=== PATIENT | male | born 1945 | race Caucasian/White ===

== ENCOUNTER 2017-09-21 17:39 | Inpatient (IN) ==
[2017-09-21] MEDS ORDERED: methylPREDNISolone SOD SUC 125 MG/2 ML VIAL IV STA (18:14)
[2017-09-21] MEDS ORDERED: FUROSEMIDE 100 MG/10 ML VIAL IV STA (18:14)
[2017-09-21] MEDS ORDERED: cefTRIAXone 1,000 MG in SODIUM CHLORIDE 0.9% 100 ML IV STA (18:14)
[2017-09-21] MEDS ORDERED: ASPIRIN 325 MG TABLET PO STA (18:14)
[2017-09-21] MEDS ORDERED: MORPHINE 2 MG/1 ML SYRINGE IV STA (18:14)
[2017-09-21] MEDS ORDERED: ENOXAPARIN 100 MG/ML SYRINGE SUBCUT STA (18:14)
[2017-09-21] MEDS ORDERED: ONDANSETRON 4 MG/2 ML VIAL IV STA (18:14)
[2017-09-21] MEDS ORDERED: NITROGLYCERIN 2% OINT 1 INCH/GM PACK TOP STA (18:14)
[2017-09-21] MEDS ORDERED: ALBUTEROL/IPRATROPIUM 3 ML NEB RESP TX STA (18:14)
[2017-09-21] MEDS ORDERED: ONDANSETRON 4 MG/2 ML VIAL ONE (18:28)
[2017-09-21] MEDS ORDERED: cefTRIAXone 1,000 MG VIAL ONE (18:28)
[2017-09-21] MEDS ORDERED: FUROSEMIDE 40 MG/4 ML VIAL ONE (18:28)
[2017-09-21] MEDS ORDERED: MORPHINE 2 MG/1 ML SYRINGE ONE (18:28)
[2017-09-21] MEDS ORDERED: ENOXAPARIN 120 MG/0.8 ML SYRINGE SUBCUT ONE (18:28)
[2017-09-21] MEDS ORDERED: FUROSEMIDE 20 MG/2 ML VIAL ONE (18:28)
[2017-09-21] MEDS ORDERED: ASPIRIN 325 MG TABLET ONE (18:28)
[2017-09-21] MEDS ORDERED: NITROGLYCERIN 2% OINT 1 INCH/GM PACK TOP ONE (18:28)
[2017-09-21] MEDS ORDERED: methylPREDNISolone SOD SUC 125 MG/2 ML VIAL ONE (18:29)
[2017-09-21 18:31] LABS: Basophils % 0.3 % (0.0-0.8); Eosinophils % 0.2 % (0.00-10.9); Hematocrit 34.9 VOL% (42.0-52.0); Hemoglobin 12.3 GM/DL (14.0-18.0); Immature Granulocytes % 0.2 %; Immature Granulocytes Absolute 0.01 #; Lymphocytes # 0.5 10*3/uL (1.4-4.0); Lymphocytes % 7.6 % (21.2-54.2); Mean Corpuscular HGB Conc 35.2 GM/DL (32-36); Mean Corpuscular Hemoglobin 30 PG (27-34); Mean Platelet Volume 9.5 FL (9.6-12.0); Monocytes # 0.5 10*3/uL (0.11-0.8); Monocytes % 8.9 % (1.7-12.7); Neutrophils # 4.9 10*3/uL (1.4-7.4); Neutrophils % 82.8 % (38.7-73.9); Platelet Count 212 T/CUMM (130-400); Red Blood Count 4.06 MC/CUMM (3.8-5.5); Red Cell Distribution Width 14.3 % (9.3-17.3)
[2017-09-21 18:39] LABS: PT Patient Result 10.7 SECS
[2017-09-21 18:46] LABS: ABG Base Excess 2.6 MMOL/L (-2.5-2.5); ABG HCO3 26.7 MMOL/L (20-26); ABG Oxygen Saturation 96.5 % (95-100); ABG PCO2 35.4 MM HG (35-48); ABG PH 7.474 (7.35-7.45); ABG PO2 80.3 MM HG (80-95); ABG TCO2 22.9 MMOL/L (23-27)
[2017-09-21 19:02] LABS: Alanine Aminotransferase 53 U/L (16-61); Alkaline Phosphatase 78 U/L (45-117); Aspartate Amino Transferase 53 U/L (0-37); Blood Urea Nitrogen 24 MG/DL (7-18); Calcium 8.3 MG/DL (8.5-10.1); Glucose 139 MG/DL (74-106); Osmolality,Calculated 267.7 MOS/KG (273-304); Potassium 3.5 MMOL/L (3.5-5.1); Sodium 131 MMOL/L (136-145); Total Protein 7.9 G/DL (6.4-8.3); Troponin I Only 0.024 NG/ML (0.00-0.045)
[2017-09-21 19:38] LABS: Lactic Acid 3.1 MMOL/L (0.4-2.0)
[2017-09-21] MEDS ORDERED: OSELTAMIVIR 75 MG CAPSULE PO ONE (19:50)
[2017-09-21 20:13] LABS: PT Patient Result 10.6 SECS; Partial Thromboplastin Time 27.7 SECS (0-40)
[2017-09-21 20:20] LABS: Apearance,Urine CLEAR (Clear); Bilirubin,Urine Negative (Negative); Blood, Urine Small mg/dL (Negative); Glucose,Urine (UA) Negative (Negative); Ketones,Urine Negative (Negative); Nitrite,Urine Negative (Negative); Protein,Urine Negative; RBC,Urine 1 /HPF (0-4); Squamous Epithelial Cell,Urine Occasional /HPF (0-10); Urine Color Straw (Yellow); Urine Specific Gravity 1.006 (1.001-1.035); Urine Urobilinogen < 2.0 EU/DL (0.2-1.0); WBC,Urine <1 /HPF (0-6)
[2017-09-21] MEDS ORDERED: DEXTROSE 50% 25 GM/50 ML VIAL IV PRN (20:22)
[2017-09-21] MEDS ORDERED: ONDANSETRON 4 MG/2 ML VIAL IV PRN (20:22)
[2017-09-21] MEDS ORDERED: ACETAMINOPHEN 325 MG TABLET PO PRN (20:22)
[2017-09-21] MEDS ORDERED: ZALEPLON 5 MG CAPSULE PO PRN (20:22)
[2017-09-21] MEDS ORDERED: GLUCAGON 1 MG VIAL IM PRN (20:22)
[2017-09-21] MEDS ORDERED: clonazePAM 0.5 MG TABLET PO PRN (20:26)
[2017-09-21] MEDS ORDERED: NITROGLYCERIN SL 0.4 MG TABLET SL PRN (20:26)
[2017-09-21] MEDS ORDERED: SODIUM CHLORIDE 0.9% 500 ML IV ONE (20:28)
[2017-09-21] MEDS: PIPERACILLIN/TAZOBACTAM 3,375 MG in SODIUM CHLORIDE 0.9% 100 ML IV SCH (22:05)
[2017-09-21] MEDS: SODIUM CHLORIDE 0.9% 1,000 ML IV SCH (23:48)
[2017-09-21] MEDS: ROSUVASTATIN 10 MG TABLET PO SCH (23:50)
[2017-09-21] MEDS: TAMSULOSIN 0.4 MG CAPSULE PO SCH (23:50)
[2017-09-21] MEDS: MAGNESIUM OXIDE 400 MG TABLET PO SCH (23:50)
[2017-09-21] MEDS: methylPREDNISolone SOD SUC 125 MG/2 ML VIAL IV SCH (23:51)
[2017-09-21] MEDS: DICLOFENAC 1% GEL 100 GM TUBE TOP SCH (23:51)
[2017-09-21] MEDS: INSULIN LISPRO 100 UNIT/ML SUBCUT SCH (23:51)
[2017-09-22] MEDS: AZITHROMYCIN INJ 500 MG in SODIUM CHLORIDE 0.9% 250 ML IV SCH ×2 (00:55→22:51)
[2017-09-22 00:58] LABS: CKMB % 0.2 %; Troponin I Only 0.025 NG/ML (0.00-0.045)
[2017-09-22] MEDS: ALBUTEROL 1.25 MG/3 ML NEB RESP TX SCH ×4 (02:31→21:10)
[2017-09-22] MEDS: methylPREDNISolone SOD SUC 125 MG/2 ML VIAL IV SCH ×2 (04:44→14:01)
[2017-09-22] MEDS: PIPERACILLIN/TAZOBACTAM 3,375 MG in SODIUM CHLORIDE 0.9% 100 ML IV SCH ×3 (06:19→23:55)
[2017-09-22 07:22] LABS: Basophils % 0.2 % (0.0-0.8); Hematocrit 31.9 VOL% (42.0-52.0); Hemoglobin 11.1 GM/DL (14.0-18.0); Immature Granulocytes % 1.4 %; Immature Granulocytes Absolute 0.06 #; Lymphocytes # 0.6 10*3/uL (1.4-4.0); Lymphocytes % 13.8 % (21.2-54.2); Mean Corpuscular HGB Conc 34.8 GM/DL (32-36); Mean Corpuscular Hemoglobin 30 PG (27-34); Mean Corpuscular Volume 85.8 FL (87-102); Mean Platelet Volume 10.1 FL (9.6-12.0); Monocytes # 0.1 10*3/uL (0.11-0.8); Monocytes % 3.4 % (1.7-12.7); Neutrophils # 3.4 10*3/uL (1.4-7.4); Neutrophils % 81.2 % (38.7-73.9); Platelet Count 190 T/CUMM (130-400); Red Blood Count 3.72 MC/CUMM (3.8-5.5); Red Cell Distribution Width 14.3 % (9.3-17.3); White Blood Count 4.1 T/CUMM (4-12)
[2017-09-22 07:49] LABS: Lactic Acid 2.2 MMOL/L (0.4-2.0)
[2017-09-22 07:55] LABS: Alanine Aminotransferase 49 U/L (16-61); Albumin 3.4 G/DL (3.4-5.0); Alkaline Phosphatase 68 U/L (45-117); Aspartate Amino Transferase 50 U/L (0-37); Blood Urea Nitrogen 29 MG/DL (7-18); Calcium 7.9 MG/DL (8.5-10.1); Glucose 269 MG/DL (74-106); Osmolality,Calculated 284.1 MOS/KG (273-304); Potassium 3.7 MMOL/L (3.5-5.1); Sodium 135 MMOL/L (136-145); Total Protein 6.5 G/DL (6.4-8.3)
[2017-09-22 08:06] LABS: CKMB % 0.3 %; Troponin I Only 0.019 NG/ML (0.00-0.045)
[2017-09-22] MEDS: DICLOFENAC 1% GEL 100 GM TUBE TOP SCH ×4 (08:59→23:04)
[2017-09-22] MEDS: INSULIN LISPRO 100 UNIT/ML SUBCUT SCH ×4 (08:59→21:00)
[2017-09-22] MEDS: ASPIRIN EC 325 MG TABLET PO SCH (09:00)
[2017-09-22] MEDS ORDERED: VALSARTAN 160 MG TABLET PO SCH (09:00)
[2017-09-22] MEDS: MULTIVITAMIN (CENTRUM) TABLET PO SCH (09:00)
[2017-09-22] MEDS: PANTOPRAZOLE 40 MG TABLET PO SCH (09:01)
[2017-09-22] MEDS: DULoxetine 30 MG CAPSULE PO SCH (09:01)
[2017-09-22] MEDS: OSELTAMIVIR 75 MG CAPSULE PO SCH ×2 (09:01→21:02)
[2017-09-22] MEDS: CLOPIDOGREL 75 MG TABLET PO SCH (09:01)
[2017-09-22 11:56] LABS: Lactic Acid 2.6 MMOL/L (0.4-2.0)
[2017-09-22] MEDS: SODIUM CHLORIDE 0.9% 1,000 ML IV SCH ×2 (14:00→18:20)
[2017-09-22] MEDS ORDERED: guaiFENesin/DM ER 600-30 MG TABLET PO PRN (14:59)
[2017-09-22] MEDS: BUMETANIDE 1 MG TABLET PO SCH (17:32)
[2017-09-22] MEDS: ENOXAPARIN 40 MG/0.4 ML SYRINGE SUBCUT SCH (21:00)
[2017-09-22] MEDS: cefTRIAXone 1,000 MG in SYRINGE 1 EACH IV SCH (21:00)
[2017-09-22] MEDS: CALCIUM (CITRATE)/VITAMIN D 200 MG-125 UNIT TABLET PO SCH (21:01)
[2017-09-22] MEDS: POTASSIUM CHLORIDE 20 MEQ TABLET PO SCH (21:01)
[2017-09-22] MEDS: ROSUVASTATIN 10 MG TABLET PO SCH (21:01)
[2017-09-22] MEDS: TAMSULOSIN 0.4 MG CAPSULE PO SCH (21:01)
[2017-09-22] MEDS: MAGNESIUM OXIDE 400 MG TABLET PO SCH (21:02)
[2017-09-23] MEDS: ALBUTEROL 1.25 MG/3 ML NEB RESP TX SCH ×4 (01:40→21:53)
[2017-09-23] MEDS: methylPREDNISolone SOD SUC 40 MG/1 ML VIAL IV SCH ×2 (02:38→14:14)
[2017-09-23] MEDS: SODIUM CHLORIDE 0.9% 1,000 ML IV SCH ×4 (06:16→21:20)
[2017-09-23] MEDS: PIPERACILLIN/TAZOBACTAM 3,375 MG in SODIUM CHLORIDE 0.9% 100 ML IV SCH ×2 (06:16→14:15)
[2017-09-23] MEDS: POTASSIUM CHLORIDE 20 MEQ TABLET PO SCH ×2 (09:14→20:45)
[2017-09-23] MEDS: INSULIN LISPRO 100 UNIT/ML SUBCUT SCH ×4 (09:14→20:46)
[2017-09-23] MEDS: DULoxetine 30 MG CAPSULE PO SCH (09:14)
[2017-09-23] MEDS: CALCIUM (CITRATE)/VITAMIN D 200 MG-125 UNIT TABLET PO SCH ×2 (09:15→20:45)
[2017-09-23] MEDS: PANTOPRAZOLE 40 MG TABLET PO SCH (09:15)
[2017-09-23] MEDS: MULTIVITAMIN (CENTRUM) TABLET PO SCH (09:15)
[2017-09-23] MEDS: CLOPIDOGREL 75 MG TABLET PO SCH (09:15)
[2017-09-23] MEDS: OSELTAMIVIR 75 MG CAPSULE PO SCH ×2 (09:15→20:45)
[2017-09-23] MEDS: ASPIRIN EC 325 MG TABLET PO SCH (09:15)
[2017-09-23] MEDS: BUMETANIDE 1 MG TABLET PO SCH ×2 (09:15→16:31)
[2017-09-23] MEDS: DICLOFENAC 1% GEL 100 GM TUBE TOP SCH ×4 (09:16→20:47)
[2017-09-23] MEDS: MAGNESIUM OXIDE 400 MG TABLET PO SCH (20:45)
[2017-09-23] MEDS: TAMSULOSIN 0.4 MG CAPSULE PO SCH (20:45)
[2017-09-23] MEDS: ROSUVASTATIN 10 MG TABLET PO SCH (20:45)
[2017-09-23] MEDS: ENOXAPARIN 40 MG/0.4 ML SYRINGE SUBCUT SCH (20:46)
[2017-09-23] MEDS: cefTRIAXone 1,000 MG in SYRINGE 1 EACH IV SCH (20:50)
[2017-09-24] MEDS: AZITHROMYCIN INJ 500 MG in SODIUM CHLORIDE 0.9% 250 ML IV SCH (00:31)
[2017-09-24] MEDS: methylPREDNISolone SOD SUC 40 MG/1 ML VIAL IV SCH ×2 (02:49→14:06)
[2017-09-24] MEDS: ALBUTEROL 1.25 MG/3 ML NEB RESP TX SCH ×3 (02:51→14:05)
[2017-09-24] MEDS: PIPERACILLIN/TAZOBACTAM 3,375 MG in SODIUM CHLORIDE 0.9% 100 ML IV SCH ×2 (02:55→09:23)
[2017-09-24 04:11] LABS: Calcium 7.3 MG/DL (8.5-10.1); Magnesium 2.4 MG/DL (1.8-2.4); Osmolality,Calculated 283.7 MOS/KG (273-304); Potassium 3.4 MMOL/L (3.5-5.1)
[2017-09-24] MEDS: SODIUM CHLORIDE 0.9% 1,000 ML IV SCH ×2 (05:03→12:02)
[2017-09-24] MEDS: DULoxetine 30 MG CAPSULE PO SCH (08:12)
[2017-09-24] MEDS: PANTOPRAZOLE 40 MG TABLET PO SCH (08:13)
[2017-09-24] MEDS: ASPIRIN EC 325 MG TABLET PO SCH (08:13)
[2017-09-24] MEDS: CLOPIDOGREL 75 MG TABLET PO SCH (08:13)
[2017-09-24] MEDS: MULTIVITAMIN (CENTRUM) TABLET PO SCH (08:13)
[2017-09-24] MEDS: CALCIUM (CITRATE)/VITAMIN D 200 MG-125 UNIT TABLET PO SCH (08:13)
[2017-09-24] MEDS: BUMETANIDE 1 MG TABLET PO SCH (08:13)
[2017-09-24] MEDS: OSELTAMIVIR 75 MG CAPSULE PO SCH (08:13)
[2017-09-24] MEDS: INSULIN LISPRO 100 UNIT/ML SUBCUT SCH ×2 (08:13→12:22)
[2017-09-24] MEDS: POTASSIUM CHLORIDE 20 MEQ TABLET PO SCH (08:13)
[2017-09-24] MEDS: DICLOFENAC 1% GEL 100 GM TUBE TOP SCH ×2 (08:16→12:02)
[2017-09-24 12:08] VITALS: BP 148/87
== END 2017-09-24 14:13 | disposition home or self-care (01) | DRG 193 ==
LOC: N.ED 17:39 → SUATTDRO 20:22 → N.EDINP 20:22 → N.3E 22:09
PROVIDERS: ADMIT Internal Medicine; ATTEND Internal Medicine Infectious Disease

== ENCOUNTER 2019-06-02 05:40 | Inpatient (IN) ==
[2019-06-02] MEDS ORDERED: NITROGLYCERIN 2% OINT 1 INCH/GM PACK TOP STA (06:03)
[2019-06-02] MEDS ORDERED: ASPIRIN 325 MG TABLET PO STA (06:03)
[2019-06-02] MEDS ORDERED: ONDANSETRON 4 MG/2 ML VIAL IV STA (06:03)
[2019-06-02 06:31] LABS: Basophils % 0.5 % (0.0-0.8); Eosinophils # 0.2 10*3/uL (0.0-0.87); Eosinophils % 2.4 % (0.00-10.9); Hematocrit 42.2 VOL% (42.0-52.0); Hemoglobin 14.5 GM/DL (14.0-18.0); Immature Granulocytes % 0.4 %; Immature Granulocytes Absolute 0.03 #; Lymphocytes # 1.4 10*3/uL (1.4-4.0); Lymphocytes % 17.5 % (21.2-54.2); Mean Corpuscular HGB Conc 34.4 GM/DL (32-36); Mean Corpuscular Volume 87.4 FL (87-102); Mean Platelet Volume 9.4 FL (9.6-12.0); Monocytes % 5.5 % (1.7-12.7); Neutrophils % 73.7 % (38.7-73.9); Platelet Count 279 T/CUMM (130-400); Red Blood Count 4.83 MC/CUMM (3.8-5.5); Red Cell Distribution Width 13.3 % (9.3-17.3); White Blood Count 7.9 T/CUMM (4-12)
[2019-06-02 06:39] LABS: PT Patient Result 10.7 SECS (9.6-12.2); Partial Thromboplastin Time 24.1 SECS (20.8-36.0)
[2019-06-02 06:45] LABS: Apearance,Urine CLEAR (Clear); Bilirubin,Urine Negative (Negative); Blood, Urine Negative (Negative); Glucose,Urine (UA) Negative (Negative); Hyaline Casts,Urine 17 /LPF (0-3); Ketones,Urine Negative (Negative); Mucus,Urine Occasional /LPF (Occasional); Nitrite,Urine Negative (Negative); Protein,Urine 30 MG/DL; RBC,Urine 2 /HPF (0-4); Urine Color Yellow (Yellow); Urine Specific Gravity 1.013 (1.001-1.035); Urine Urobilinogen < 2.0 EU/DL (0.2-1.0); WBC,Urine <1 /HPF (0-6)
[2019-06-02 06:55] LABS: CKMB % 1.3 %; Troponin I < 0.015 NG/ML (0.00-0.045)
[2019-06-02 06:59] LABS: Albumin 4.4 G/DL (3.4-5.0); Bilirubin,Total 0.7 MG/DL (0.2-1.0); Calcium 9.7 MG/DL (8.5-10.1); Osmolality,Calculated 280.2 MOS/KG (273-304)
[2019-06-02] MEDS ORDERED: POTASSIUM BICARB EFFERVESCENT 25 MEQ TABLET PO ONE (07:03)
[2019-06-02] MEDS ORDERED: GLUCAGON 1 MG VIAL IM PRN (07:19)
[2019-06-02] MEDS ORDERED: ONDANSETRON 4 MG/2 ML VIAL IV PRN (07:19)
[2019-06-02] MEDS ORDERED: DEXTROSE 10% 25 GM/250 ML BAG IV PRN (07:19)
[2019-06-02 09:40] LABS: CKMB % 1.3 %; Troponin I < 0.015 NG/ML (0.00-0.045)
[2019-06-02] MEDS ORDERED: HYDROcodone/CHLORPHENIRAMINE ER 5 ML UDCUP PO PRN (09:51)
[2019-06-02] MEDS: NITROGLYCERIN 2% OINT 1 INCH/GM PACK TOP SCH ×2 (09:53→22:31)
[2019-06-02] MEDS: metFORMIN 500 MG TABLET PO SCH ×2 (09:53→17:08)
[2019-06-02] MEDS: INSULIN REGULAR 100 UNIT/ML SUBCUT SCH ×4 (09:53→20:33)
[2019-06-02] MEDS: CLOPIDOGREL 75 MG TABLET PO SCH (12:48)
[2019-06-02] MEDS: POTASSIUM CHLORIDE 20 MEQ TABLET PO SCH ×2 (12:48→20:30)
[2019-06-02] MEDS: ASPIRIN 325 MG TABLET PO SCH (12:48)
[2019-06-02] MEDS: CALCIUM (CITRATE)/VITAMIN D 200 MG-125 UNIT TABLET PO SCH ×2 (12:48→20:31)
[2019-06-02] MEDS: LOSARTAN 25 MG TABLET PO SCH (12:48)
[2019-06-02] MEDS: PANTOPRAZOLE 40 MG TABLET PO SCH (12:50)
[2019-06-02] MEDS ORDERED: ALBUTEROL 2.5 MG/3 ML NEB RESP TX PRN (13:00)
[2019-06-02 14:27] LABS: CKMB % 1.2 %; Troponin I < 0.015 NG/ML (0.00-0.045)
[2019-06-02] MEDS: BUMETANIDE 1 MG TABLET PO SCH (17:08)
[2019-06-02] MEDS: ASCORBIC ACID 500 MG TABLET PO SCH (20:30)
[2019-06-02] MEDS: MAGNESIUM OXIDE 400 MG TABLET PO SCH (20:31)
[2019-06-02] MEDS: TAMSULOSIN 0.4 MG CAPSULE PO SCH (20:31)
[2019-06-02] MEDS: OMEGA 3 ACID ETHYL ESTERS 1 GM CAPSULE PO SCH (20:31)
[2019-06-02] MEDS: ROSUVASTATIN 10 MG TABLET PO SCH (20:31)
[2019-06-02] MEDS: SPIRONOLACTONE 25 MG TABLET PO SCH (20:31)
[2019-06-02] MEDS: MULTIVITAMIN (CENTRUM) TABLET PO SCH (20:31)
[2019-06-02] MEDS: DULoxetine 30 MG CAPSULE PO SCH (20:34)
[2019-06-02] MEDS: CHOLECALCIFEROL 5,000 UNIT TABLET PO SCH (20:43)
[2019-06-02] MEDS ORDERED: SPIRONOLACTONE 25 MG TABLET PO SCH (21:00)
[2019-06-03 05:45] LABS: CKMB % 1.1 %; Troponin I < 0.015 NG/ML (0.00-0.045)
[2019-06-03] MEDS: NITROGLYCERIN SL 0.4 MG TABLET SL PRN ×2 (08:14→08:19)
[2019-06-03] MEDS: ASPIRIN 325 MG TABLET PO SCH (08:55)
[2019-06-03] MEDS: CLOPIDOGREL 75 MG TABLET PO SCH (08:56)
[2019-06-03] MEDS: BUMETANIDE 1 MG TABLET PO SCH ×2 (08:56→16:45)
[2019-06-03] MEDS: metFORMIN 500 MG TABLET PO SCH ×2 (08:56→16:44)
[2019-06-03] MEDS: LOSARTAN 25 MG TABLET PO SCH (08:56)
[2019-06-03] MEDS: ASCORBIC ACID 500 MG TABLET PO SCH ×2 (08:56→20:35)
[2019-06-03] MEDS: CALCIUM (CITRATE)/VITAMIN D 200 MG-125 UNIT TABLET PO SCH ×2 (08:56→20:34)
[2019-06-03] MEDS: PANTOPRAZOLE 40 MG TABLET PO SCH (08:58)
[2019-06-03] MEDS: POTASSIUM CHLORIDE 20 MEQ TABLET PO SCH ×2 (08:58→20:36)
[2019-06-03] MEDS: NITROGLYCERIN 2% OINT 1 INCH/GM PACK TOP SCH ×2 (08:59→20:36)
[2019-06-03] MEDS: INSULIN REGULAR 100 UNIT/ML SUBCUT SCH ×3 (09:00→16:44)
[2019-06-03] MEDS: FLUTICASONE 50 MCG NASAL SPRAY 16 GM BOTTLE BOTH NARES SCH (11:54)
[2019-06-03] MEDS: AZELASTINE NASAL 137 MCG/SPRAY 30 ML BOTTLE BOTH NARES SCH ×2 (11:54→20:37)
[2019-06-03] MEDS ORDERED: POTASSIUM CHLORIDE RIDER 10 MEQ in PREMIX 1 EACH IV PRN (12:58)
[2019-06-03] MEDS ORDERED: diphenhydrAMINE CAP 25 MG CAPSULE PO ONE (12:58)
[2019-06-03] MEDS ORDERED: MAGNESIUM SULF RIDER 2 GM in PREMIX 1 EACH IV PRN (12:58)
[2019-06-03 13:07] LABS: Calcium 9.4 MG/DL (8.5-10.1); Osmolality,Calculated 281.2 MOS/KG (273-304)
[2019-06-03] MEDS ORDERED: diphenhydrAMINE CAP 50 MG CAPSULE PO ONE (13:19)
[2019-06-03] MEDS: ROSUVASTATIN 10 MG TABLET PO SCH (20:34)
[2019-06-03] MEDS: SPIRONOLACTONE 25 MG TABLET PO SCH (20:34)
[2019-06-03] MEDS: CHOLECALCIFEROL 5,000 UNIT TABLET PO SCH (20:35)
[2019-06-03] MEDS: TAMSULOSIN 0.4 MG CAPSULE PO SCH (20:35)
[2019-06-03] MEDS: OMEGA 3 ACID ETHYL ESTERS 1 GM CAPSULE PO SCH (20:35)
[2019-06-03] MEDS: DULoxetine 30 MG CAPSULE PO SCH (20:36)
[2019-06-03] MEDS: MAGNESIUM OXIDE 400 MG TABLET PO SCH (20:36)
[2019-06-03] MEDS: INSULIN GLARGINE 100 UNIT/ML SUBCUT SCH (20:36)
[2019-06-03] MEDS: MULTIVITAMIN (CENTRUM) TABLET PO SCH (20:36)
[2019-06-04 04:55] LABS: Basophils % 0.5 % (0.0-0.8); Eosinophils # 0.3 10*3/uL (0.0-0.87); Eosinophils % 5.3 % (0.00-10.9); Hematocrit 36.1 VOL% (42.0-52.0); Hemoglobin 12.5 GM/DL (14.0-18.0); Immature Granulocytes % 0.2 %; Immature Granulocytes Absolute 0.01 #; Lymphocytes # 1.8 10*3/uL (1.4-4.0); Lymphocytes % 29.3 % (21.2-54.2); Mean Corpuscular HGB Conc 34.6 GM/DL (32-36); Mean Corpuscular Volume 87.2 FL (87-102); Mean Platelet Volume 9.6 FL (9.6-12.0); Monocytes % 6.1 % (1.7-12.7); Neutrophils % 58.6 % (38.7-73.9); Platelet Count 229 T/CUMM (130-400); Red Blood Count 4.14 MC/CUMM (3.8-5.5); Red Cell Distribution Width 13.1 % (9.3-17.3); White Blood Count 6.2 T/CUMM (4-12)
[2019-06-04 05:36] LABS: Calcium 8.8 MG/DL (8.5-10.1)
[2019-06-04] MEDS ORDERED: diphenhydrAMINE CAP 25 MG CAPSULE PO ONE (06:30)
[2019-06-04] MEDS ORDERED: DIAZEPAM 5 MG TABLET PO ONE (06:30)
[2019-06-04] MEDS ORDERED: NITROGLYCERIN DRIP 50 MG/250 ML BOTTLE IV ONE (09:44)
[2019-06-04] MEDS ORDERED: VERAPAMIL 5 MG/2 ML VIAL ONE (09:44)
[2019-06-04] MEDS ORDERED: LIDOCAINE 1% 20 ML VIAL ONE (09:44)
[2019-06-04] MEDS: ASPIRIN 325 MG TABLET PO SCH (09:52)
[2019-06-04] MEDS: PANTOPRAZOLE 40 MG TABLET PO SCH (09:52)
[2019-06-04] MEDS: LOSARTAN 25 MG TABLET PO SCH (09:52)
[2019-06-04] MEDS: CLOPIDOGREL 75 MG TABLET PO SCH (09:53)
[2019-06-04] MEDS: FLUTICASONE 50 MCG NASAL SPRAY 16 GM BOTTLE BOTH NARES SCH (09:53)
[2019-06-04] MEDS: NITROGLYCERIN 2% OINT 1 INCH/GM PACK TOP SCH ×2 (09:53→21:15)
[2019-06-04] MEDS: POTASSIUM CHLORIDE 20 MEQ TABLET PO SCH ×2 (09:53→20:52)
[2019-06-04] MEDS: CALCIUM (CITRATE)/VITAMIN D 200 MG-125 UNIT TABLET PO SCH ×2 (09:55→21:00)
[2019-06-04] MEDS: metFORMIN 500 MG TABLET PO SCH ×2 (09:55→16:58)
[2019-06-04] MEDS: AZELASTINE NASAL 137 MCG/SPRAY 30 ML BOTTLE BOTH NARES SCH ×2 (09:55→21:03)
[2019-06-04] MEDS: INSULIN REGULAR 100 UNIT/ML SUBCUT SCH ×3 (09:56→16:58)
[2019-06-04] MEDS: BUMETANIDE 1 MG TABLET PO SCH ×2 (09:56→16:58)
[2019-06-04] MEDS: ASCORBIC ACID 500 MG TABLET PO SCH ×2 (09:56→20:50)
[2019-06-04] MEDS ORDERED: HYDROmorphone 2 MG/1 ML VIAL ONE (10:06)
[2019-06-04] MEDS ORDERED: MIDAZOLAM 2 MG/2 ML VIAL ONE (10:06)
[2019-06-04] MEDS ORDERED: BIVALIRUDIN 250 MG VIAL IV ONE (10:56)
[2019-06-04] MEDS ORDERED: HEPARIN/NACL 0.9% 2 UNITS/ML 500 ML IV ONE (10:59)
[2019-06-04] MEDS ORDERED: CLOPIDOGREL 300 MG TABLET ONE (11:11)
[2019-06-04] MEDS ORDERED: POTASSIUM CHLORIDE 20 MEQ TABLET PO ONE (17:09)
[2019-06-04] MEDS: OMEGA 3 ACID ETHYL ESTERS 1 GM CAPSULE PO SCH (20:55)
[2019-06-04] MEDS: TAMSULOSIN 0.4 MG CAPSULE PO SCH (20:55)
[2019-06-04] MEDS: MULTIVITAMIN (CENTRUM) TABLET PO SCH (20:56)
[2019-06-04] MEDS: ROSUVASTATIN 10 MG TABLET PO SCH (20:57)
[2019-06-04] MEDS: SPIRONOLACTONE 25 MG TABLET PO SCH (20:57)
[2019-06-04] MEDS: MAGNESIUM OXIDE 400 MG TABLET PO SCH (20:57)
[2019-06-04] MEDS: CHOLECALCIFEROL 5,000 UNIT TABLET PO SCH (20:57)
[2019-06-04] MEDS: DULoxetine 30 MG CAPSULE PO SCH (20:57)
[2019-06-04] MEDS: INSULIN GLARGINE 100 UNIT/ML SUBCUT SCH (21:02)
[2019-06-05 04:29] LABS: Basophils % 0.6 % (0.0-0.8); Eosinophils # 0.3 10*3/uL (0.0-0.87); Eosinophils % 4.5 % (0.00-10.9); Hematocrit 34.1 VOL% (42.0-52.0); Hemoglobin 11.7 GM/DL (14.0-18.0); Immature Granulocytes % 0.3 %; Immature Granulocytes Absolute 0.02 #; Lymphocytes # 1.6 10*3/uL (1.4-4.0); Mean Corpuscular HGB Conc 34.3 GM/DL (32-36); Mean Corpuscular Volume 88.3 FL (87-102); Mean Platelet Volume 9.7 FL (9.6-12.0); Monocytes % 5.9 % (1.7-12.7); Neutrophils % 62.7 % (38.7-73.9); Platelet Count 202 T/CUMM (130-400); Red Blood Count 3.86 MC/CUMM (3.8-5.5); Red Cell Distribution Width 13.2 % (9.3-17.3); White Blood Count 6.2 T/CUMM (4-12)
[2019-06-05 04:58] LABS: Osmolality,Calculated 281.8 MOS/KG (273-304)
[2019-06-05] MEDS: INSULIN REGULAR 100 UNIT/ML SUBCUT SCH ×2 (09:02→11:51)
[2019-06-05] MEDS: metFORMIN 500 MG TABLET PO SCH (09:02)
[2019-06-05] MEDS: CALCIUM (CITRATE)/VITAMIN D 200 MG-125 UNIT TABLET PO SCH (09:02)
[2019-06-05] MEDS: ASCORBIC ACID 500 MG TABLET PO SCH (09:02)
[2019-06-05] MEDS: FLUTICASONE 50 MCG NASAL SPRAY 16 GM BOTTLE BOTH NARES SCH (09:03)
[2019-06-05] MEDS: POTASSIUM CHLORIDE 20 MEQ TABLET PO SCH (09:03)
[2019-06-05] MEDS: NITROGLYCERIN 2% OINT 1 INCH/GM PACK TOP SCH (09:03)
[2019-06-05] MEDS: PANTOPRAZOLE 40 MG TABLET PO SCH (09:03)
[2019-06-05] MEDS: LOSARTAN 25 MG TABLET PO SCH (09:03)
[2019-06-05] MEDS: CLOPIDOGREL 75 MG TABLET PO SCH (09:03)
[2019-06-05] MEDS: ASPIRIN 325 MG TABLET PO SCH (09:03)
[2019-06-05] MEDS: AZELASTINE NASAL 137 MCG/SPRAY 30 ML BOTTLE BOTH NARES SCH (09:03)
[2019-06-05] MEDS: BUMETANIDE 1 MG TABLET PO SCH (09:03)
[2019-06-05 11:24] VITALS: BP 138/86
== END 2019-06-05 13:57 | disposition home or self-care (01) | DRG 247 ==
LOC: N.EDINP 05:40 → N.ED 05:40 → N.EDINP 08:26 → N.TELES 08:51
PROVIDERS: ADMIT Family Medicine; ATTEND Family Medicine
PROC: CLCCHCL (ICD-10-PCS; 2019-06-04 10:15)

== ENCOUNTER 2019-06-24 00:18 | Inpatient (IN) ==
[2019-06-24] MEDS ORDERED: ASPIRIN 325 MG TABLET PO STA (00:49)
[2019-06-24] MEDS ORDERED: NITROGLYCERIN 2% OINT 1 INCH/GM PACK TOP STA (00:49)
[2019-06-24] MEDS ORDERED: ONDANSETRON 4 MG/2 ML VIAL IV STA (00:49)
[2019-06-24 01:00] LABS: Basophils # 0.1 10*3/uL (0.0-0.2); Basophils % 0.8 % (0.0-0.8); Eosinophils # 0.3 10*3/uL (0.0-0.87); Eosinophils % 5.2 % (0.00-10.9); Hematocrit 33.4 VOL% (42.0-52.0); Hemoglobin 11.2 GM/DL (14.0-18.0); Immature Granulocytes % 0.3 %; Immature Granulocytes Absolute 0.02 #; Lymphocytes % 30.1 % (21.2-54.2); Mean Corpuscular HGB Conc 33.5 GM/DL (32-36); Mean Corpuscular Volume 90.8 FL (87-102); Mean Platelet Volume 9.2 FL (9.6-12.0); Neutrophils % 57.6 % (38.7-73.9); Platelet Count 242 T/CUMM (130-400); Red Blood Count 3.68 MC/CUMM (3.8-5.5); Red Cell Distribution Width 13.9 % (9.3-17.3); White Blood Count 6.6 T/CUMM (4-12)
[2019-06-24 01:09] LABS: INR 0.9; PT Patient Result 9.9 SECS (9.6-12.2)
[2019-06-24] MEDS ORDERED: MORPHINE 4 MG/1 ML VIAL IV STA (01:17)
[2019-06-24] MEDS ORDERED: MORPHINE 4 MG/1 ML VIAL ONE (01:17)
[2019-06-24 01:19] LABS: Alanine Aminotransferase 36 U/L (16-61); Albumin 3.7 G/DL (3.4-5.0); Alkaline Phosphatase 59 U/L (45-117); Aspartate Amino Transferase 20 U/L (0-37); Bilirubin,Total < 0.39 MG/DL (0.2-1.0); Blood Urea Nitrogen 19 MG/DL (7-18); CKMB % 1.2 %; Calcium 8.8 MG/DL (8.5-10.1); Estimated Glom Filtration Rate 70 ML/MIN; Glucose 186 MG/DL (74-106); Osmolality,Calculated 287.3 MOS/KG (273-304); Total Protein 6.8 G/DL (6.4-8.3); Troponin I < 0.015 NG/ML (0.00-0.045)
[2019-06-24] MEDS ORDERED: GLUCAGON 1 MG VIAL IM PRN ×2 (01:52→04:30)
[2019-06-24] MEDS ORDERED: ONDANSETRON 4 MG/2 ML VIAL IV PRN (01:52)
[2019-06-24] MEDS ORDERED: DEXTROSE 50% 25 GM/50 ML VIAL IV PRN ×2 (01:52→04:30)
[2019-06-24 02:38] LABS: Apearance,Urine CLEAR (Clear); Bilirubin,Urine Negative (Negative); Blood, Urine Negative (Negative); Glucose,Urine (UA) Negative (Negative); Ketones,Urine Negative (Negative); Mucus,Urine Occasional /LPF (Occasional); Nitrite,Urine Negative (Negative); Protein,Urine Negative; RBC,Urine 3 /HPF (0-4); Urine Color Yellow (Yellow); Urine Specific Gravity 1.023 (1.001-1.035); Urine Urobilinogen < 2.0 EU/DL (0.2-1.0); WBC,Urine <1 /HPF (0-6)
[2019-06-24 06:13] LABS: Troponin I < 0.015 NG/ML (0.00-0.045)
[2019-06-24] MEDS: NITROGLYCERIN 2% OINT 1 INCH/GM PACK TOP SCH ×3 (06:15→18:50)
[2019-06-24] MEDS ORDERED: INSULIN REGULAR 100 UNIT/ML SUBCUT SCH (07:30)
[2019-06-24] MEDS: CLOPIDOGREL 75 MG TABLET PO SCH (09:01)
[2019-06-24] MEDS ORDERED: DIAZEPAM 5 MG TABLET PO ONE (16:51)
[2019-06-24] MEDS ORDERED: MAGNESIUM SULF RIDER 2 GM in PREMIX 1 EACH IV PRN (16:51)
[2019-06-24] MEDS ORDERED: diphenhydrAMINE CAP 25 MG CAPSULE PO ONE (16:51)
[2019-06-24] MEDS ORDERED: POTASSIUM CHLORIDE RIDER 10 MEQ in PREMIX 1 EACH IV PRN (16:51)
[2019-06-24] MEDS ORDERED: ENOXAPARIN 100 MG/ML SYRINGE SUBCUT ONE (16:51)
[2019-06-24] MEDS: SODIUM CHLORIDE 0.9% 1,000 ML IV SCH (18:28)
[2019-06-24] MEDS ORDERED: ACETAMINOPHEN 325 MG TABLET PO PRN (20:59)
[2019-06-24] MEDS: INSULIN GLARGINE 100 UNIT/ML SUBCUT SCH (21:14)
[2019-06-24] MEDS: INSULIN REGULAR 100 UNIT/ML SUBCUT SCH (21:15)
[2019-06-24] MEDS: ROSUVASTATIN 10 MG TABLET PO SCH (21:19)
[2019-06-25] MEDS: NITROGLYCERIN 2% OINT 1 INCH/GM PACK TOP SCH ×5 (02:53→23:50)
[2019-06-25] MEDS: SODIUM CHLORIDE 0.9% 1,000 ML IV SCH ×2 (03:02→12:50)
[2019-06-25 05:06] LABS: Basophils % 0.6 % (0.0-0.8); Eosinophils # 0.3 10*3/uL (0.0-0.87); Eosinophils % 5.8 % (0.00-10.9); Hematocrit 30.8 VOL% (42.0-52.0); Hemoglobin 10.3 GM/DL (14.0-18.0); Immature Granulocytes % 0.4 %; Immature Granulocytes Absolute 0.02 #; Lymphocytes # 1.7 10*3/uL (1.4-4.0); Lymphocytes % 33.3 % (21.2-54.2); Mean Corpuscular HGB Conc 33.4 GM/DL (32-36); Mean Corpuscular Volume 91.1 FL (87-102); Mean Platelet Volume 9.8 FL (9.6-12.0); Monocytes % 6.2 % (1.7-12.7); Neutrophils % 53.7 % (38.7-73.9); Platelet Count 201 T/CUMM (130-400); Red Blood Count 3.38 MC/CUMM (3.8-5.5); Red Cell Distribution Width 14.1 % (9.3-17.3); White Blood Count 5.1 T/CUMM (4-12)
[2019-06-25 05:21] LABS: Osmolality,Calculated 293.6 MOS/KG (273-304)
[2019-06-25] MEDS: INSULIN REGULAR 100 UNIT/ML SUBCUT SCH ×6 (08:39→20:26)
[2019-06-25] MEDS ORDERED: MAGNESIUM SULF RIDER 2 GM in PREMIX 1 EACH IV PRN (09:09)
[2019-06-25] MEDS ORDERED: POTASSIUM CHLORIDE RIDER 10 MEQ in PREMIX 1 EACH IV PRN (09:09)
[2019-06-25] MEDS ORDERED: NITROGLYCERIN SL 0.4 MG TABLET SL PRN (10:04)
[2019-06-25] MEDS ORDERED: ALBUTEROL 2.5 MG/3 ML NEB RESP TX PRN (11:00)
[2019-06-25] MEDS ORDERED: DIAZEPAM 5 MG TABLET PO ONE (13:30)
[2019-06-25] MEDS ORDERED: diphenhydrAMINE CAP 25 MG CAPSULE PO ONE (13:30)
[2019-06-25] MEDS ORDERED: LIDOCAINE 1% 20 ML VIAL ONE (13:38)
[2019-06-25] MEDS: CLOPIDOGREL 75 MG TABLET PO SCH (13:42)
[2019-06-25] MEDS: FLUTICASONE 50 MCG NASAL SPRAY 16 GM BOTTLE BOTH NARES SCH ×2 (13:46→22:14)
[2019-06-25] MEDS: AZELASTINE BOTH NARES SCH ×2 (13:46→22:14)
[2019-06-25] MEDS ORDERED: fentaNYL 100 MCG/2 ML VIAL ONE (13:56)
[2019-06-25] MEDS ORDERED: MIDAZOLAM 2 MG/2 ML VIAL ONE (13:56)
[2019-06-25] MEDS ORDERED: TIROFIBAN 5,000 MCG/100 ML PREMIX IV ONE (14:27)
[2019-06-25] MEDS ORDERED: DEXTROSE 10% 25 GM/250 ML BAG IV PRN (14:30)
[2019-06-25] MEDS ORDERED: TIROFIBAN 5,000 MCG/100 ML PREMIX IV SCH (14:34)
[2019-06-25] MEDS ORDERED: diphenhydrAMINE 50 MG/1 ML VIAL ONE (14:37)
[2019-06-25] MEDS ORDERED: HYDROmorphone 2 MG/1 ML VIAL ONE (14:47)
[2019-06-25] MEDS ORDERED: CLOPIDOGREL 300 MG TABLET ONE (15:01)
[2019-06-25] MEDS ORDERED: DEXTROSE 50% 25 GM/50 ML VIAL IV PRN (15:49)
[2019-06-25 16:48] LABS: Troponin I < 0.015 NG/ML (0.00-0.045)
[2019-06-25] MEDS ORDERED: SODIUM CHLORIDE 0.9% 1,000 ML IV SCH (17:00)
[2019-06-25] MEDS: BUMETANIDE 1 MG TABLET PO SCH ×2 (17:50→22:10)
[2019-06-25] MEDS: INSULIN GLARGINE 100 UNIT/ML SUBCUT SCH (20:27)
[2019-06-25] MEDS ORDERED: SPIRONOLACTONE 25 MG TABLET PO SCH (21:00)
[2019-06-25] MEDS ORDERED: CHOLECALCIFEROL 5,000 UNIT TABLET PO SCH (21:00)
[2019-06-25] MEDS ORDERED: MAGNESIUM OXIDE 400 MG TABLET PO SCH (21:00)
[2019-06-25] MEDS ORDERED: LOSARTAN 25 MG TABLET PO SCH (21:00)
[2019-06-25] MEDS ORDERED: MULTIVITAMIN (CENTRUM) TABLET PO SCH (21:00)
[2019-06-25] MEDS ORDERED: OMEGA 3 ACID ETHYL ESTERS 1 GM CAPSULE PO SCH (21:00)
[2019-06-25] MEDS ORDERED: DULoxetine 30 MG CAPSULE PO SCH (21:00)
[2019-06-25] MEDS: MORPHINE 4 MG/1 ML VIAL IV PRN (21:24)
[2019-06-25] MEDS: CALCIUM (CITRATE)/VITAMIN D 200 MG-125 UNIT TABLET PO SCH (22:12)
[2019-06-25] MEDS: ROSUVASTATIN 10 MG TABLET PO SCH (22:12)
[2019-06-25] MEDS: ASCORBIC ACID 500 MG TABLET PO SCH (22:13)
[2019-06-26 01:07] LABS: Basophils % 0.7 % (0.0-0.8); Eosinophils # 0.3 10*3/uL (0.0-0.87); Eosinophils % 5.5 % (0.00-10.9); Hemoglobin 11.6 GM/DL (14.0-18.0); Immature Granulocytes % 0.5 %; Immature Granulocytes Absolute 0.03 #; Lymphocytes # 1.4 10*3/uL (1.4-4.0); Lymphocytes % 23.3 % (21.2-54.2); Mean Corpuscular HGB Conc 33.1 GM/DL (32-36); Mean Corpuscular Volume 91.4 FL (87-102); Mean Platelet Volume 9.2 FL (9.6-12.0); Monocytes % 5.9 % (1.7-12.7); Neutrophils % 64.1 % (38.7-73.9); Platelet Count 236 T/CUMM (130-400); Red Blood Count 3.83 MC/CUMM (3.8-5.5); Red Cell Distribution Width 14.6 % (9.3-17.3); White Blood Count 6.1 T/CUMM (4-12)
[2019-06-26 01:29] LABS: Troponin I 0.017 NG/ML (0.00-0.045)
[2019-06-26 01:43] LABS: Calcium 8.6 MG/DL (8.5-10.1); Osmolality,Calculated 283.1 MOS/KG (273-304)
[2019-06-26] MEDS: MORPHINE 4 MG/1 ML VIAL IV PRN (03:25)
[2019-06-26] MEDS: NITROGLYCERIN 2% OINT 1 INCH/GM PACK TOP SCH (05:08)
[2019-06-26] MEDS: INSULIN REGULAR 100 UNIT/ML SUBCUT SCH ×2 (08:05→10:47)
[2019-06-26 08:31] VITALS: BP 121/82
[2019-06-26] MEDS ORDERED: POTASSIUM CHLORIDE 8 MEQ CAPSULE PO SCH (09:00)
[2019-06-26] MEDS ORDERED: ASPIRIN EC 81 MG TABLET PO SCH (09:00)
[2019-06-26] MEDS ORDERED: ASPIRIN EC 325 MG TABLET PO SCH (09:00)
[2019-06-26] MEDS: FLUTICASONE 50 MCG NASAL SPRAY 16 GM BOTTLE BOTH NARES SCH (09:10)
[2019-06-26] MEDS: ASCORBIC ACID 500 MG TABLET PO SCH (09:10)
[2019-06-26] MEDS: CLOPIDOGREL 75 MG TABLET PO SCH (09:10)
[2019-06-26] MEDS: CALCIUM (CITRATE)/VITAMIN D 200 MG-125 UNIT TABLET PO SCH (09:10)
[2019-06-26 09:24] LABS: Troponin I < 0.015 NG/ML (0.00-0.045)
[2019-06-26] MEDS: AZELASTINE BOTH NARES SCH (10:49)
[2019-06-26] MEDS: BUMETANIDE 1 MG TABLET PO SCH (10:50)
== END 2019-06-26 11:31 | disposition home or self-care (01) | DRG 247 ==
LOC: N.ED 00:18 → N.EDINP 01:51 → N.TELES 02:00
PROVIDERS: ADMIT Internal Medicine Cardiovascular Disease; ATTEND Internal Medicine Cardiovascular Disease
PROC: CLCCHCL (ICD-10-PCS; 2019-06-25 14:45)

== ENCOUNTER 2019-09-10 13:42 | Observation (INO) ==
[2019-09-10] MEDS ORDERED: ASPIRIN 325 MG TABLET PO STA (13:55)
[2019-09-10] MEDS ORDERED: ENOXAPARIN 100 MG/ML SYRINGE SUBCUT STA (13:55)
[2019-09-10] MEDS ORDERED: MORPHINE 4 MG/1 ML VIAL IV STA (14:02)
[2019-09-10] MEDS ORDERED: ONDANSETRON 4 MG/2 ML VIAL IV STA (14:02)
[2019-09-10 14:45] LABS: PT Patient Result 10.4 SECS (9.6-12.2); Partial Thromboplastin Time 25.1 SECS (20.8-36.0)
[2019-09-10 14:59] LABS: Albumin 4.3 G/DL (3.4-5.0); Bilirubin,Total 0.7 MG/DL (0.2-1.0); Calcium 8.6 MG/DL (8.5-10.1); Osmolality,Calculated 281.2 MOS/KG (273-304); Total Protein 7.9 G/DL (6.4-8.3)
[2019-09-10 15:08] LABS: Basophils # 0.1 10*3/uL (0.0-0.2); Basophils % 0.7 % (0.0-0.8); Eosinophils # 0.2 10*3/uL (0.0-0.87); Eosinophils % 2.4 % (0.00-10.9); Hematocrit 41.8 VOL% (42.0-52.0); Hemoglobin 14.2 GM/DL (14.0-18.0); Immature Granulocytes % 0.3 %; Immature Granulocytes Absolute 0.03 #; Lymphocytes # 2.1 10*3/uL (1.4-4.0); Mean Corpuscular Volume 86.4 FL (87-102); Mean Platelet Volume 9.7 FL (9.6-12.0); Monocytes % 7.6 % (1.7-12.7); Platelet Count 357 T/CUMM (130-400); Red Blood Count 4.84 MC/CUMM (3.8-5.5); Red Cell Distribution Width 13.3 % (9.3-17.3); White Blood Count 8.9 T/CUMM (4-12)
[2019-09-10] MEDS ORDERED: MAGNESIUM SULF RIDER 2 GM in PREMIX 1 EACH IV PRN (16:05)
[2019-09-10] MEDS ORDERED: ONDANSETRON 4 MG/2 ML VIAL IV PRN (16:05)
[2019-09-10] MEDS ORDERED: MAGNESIUM SULF RIDER 4 GM in PREMIX 1 EACH IV PRN (16:05)
[2019-09-10] MEDS ORDERED: ZALEPLON 5 MG CAPSULE PO PRN (16:05)
[2019-09-10] MEDS ORDERED: ALBUTEROL 2.5 MG/3 ML NEB RESP TX PRN (16:10)
[2019-09-10] MEDS ORDERED: NITROGLYCERIN SL 0.4 MG TABLET SL PRN (16:10)
[2019-09-10] MEDS ORDERED: ENOXAPARIN 40 MG/0.4 ML SYRINGE SUBCUT SCH (16:30)
[2019-09-10] MEDS ORDERED: GABAPENTIN 100 MG CAPSULE PO ONE (18:24)
[2019-09-10] MEDS: POTASSIUM CHLORIDE 20 MEQ TABLET PO PRN ×2 (20:08→22:50)
[2019-09-10] MEDS: SODIUM CHLORIDE 0.45% 1,000 ML IV SCH (20:09)
[2019-09-10] MEDS: ACETAMINOPHEN 325 MG TABLET PO SCH (20:12)
[2019-09-10] MEDS ORDERED: OMEGA 3 ACID ETHYL ESTERS 1 GM CAPSULE PO SCH (21:00)
[2019-09-10] MEDS ORDERED: CHOLECALCIFEROL 5,000 UNIT TABLET PO SCH (21:00)
[2019-09-10] MEDS ORDERED: INSULIN GLARGINE 100 UNIT/ML SUBCUT SCH (21:00)
[2019-09-10] MEDS ORDERED: ASPIRIN EC 325 MG TABLET PO SCH (21:00)
[2019-09-10] MEDS ORDERED: MULTIVITAMIN (CENTRUM) TABLET PO SCH (21:00)
[2019-09-10] MEDS ORDERED: DULoxetine 30 MG CAPSULE PO SCH ×2 (21:00)
[2019-09-10] MEDS ORDERED: ROSUVASTATIN 10 MG TABLET PO SCH (21:00)
[2019-09-10] MEDS ORDERED: MAGNESIUM OXIDE 400 MG TABLET PO SCH (21:00)
[2019-09-10] MEDS ORDERED: CLOPIDOGREL 75 MG TABLET PO SCH (21:00)
[2019-09-10] MEDS: BUMETANIDE 1 MG TABLET PO SCH (22:46)
[2019-09-10] MEDS: FAMOTIDINE 20 MG TABLET PO SCH (22:46)
[2019-09-10] MEDS: CALCIUM (CITRATE)/VITAMIN D 200 MG-125 UNIT TABLET PO SCH (22:47)
[2019-09-10] MEDS: FLUTICASONE 50 MCG NASAL SPRAY 16 GM BOTTLE BOTH NARES SCH (22:47)
[2019-09-10] MEDS: AZELASTINE NASAL 137 MCG/SPRAY 30 ML BOTTLE BOTH NARES SCH (22:47)
[2019-09-10] MEDS: INSULIN REGULAR 100 UNIT/ML SUBCUT SCH (23:52)
[2019-09-10] MEDS: GABAPENTIN 100 MG CAPSULE PO SCH (23:53)
[2019-09-11 05:33] LABS: Basophils % 0.7 % (0.0-0.8); Eosinophils # 0.3 10*3/uL (0.0-0.87); Eosinophils % 5.6 % (0.00-10.9); Hematocrit 37.8 VOL% (42.0-52.0); Hemoglobin 12.9 GM/DL (14.0-18.0); Immature Granulocytes % 0.2 %; Immature Granulocytes Absolute 0.01 #; Lymphocytes # 1.6 10*3/uL (1.4-4.0); Lymphocytes % 28.3 % (21.2-54.2); Mean Corpuscular HGB Conc 34.1 GM/DL (32-36); Mean Corpuscular Volume 88.3 FL (87-102); Mean Platelet Volume 9.8 FL (9.6-12.0); Monocytes % 8.7 % (1.7-12.7); Neutrophils % 56.5 % (38.7-73.9); Platelet Count 280 T/CUMM (130-400); Red Blood Count 4.28 MC/CUMM (3.8-5.5); Red Cell Distribution Width 13.3 % (9.3-17.3); White Blood Count 5.8 T/CUMM (4-12)
[2019-09-11 06:06] LABS: Blood Urea Nitrogen 31 MG/DL (7-18); Calcium 8.2 MG/DL (8.5-10.1); Estimated Glom Filtration Rate 65 ML/MIN; Glucose 265 MG/DL (74-106); HDL Cholesterol 26 MG/DL (40-60); Osmolality,Calculated 290.7 MOS/KG (273-304); Risk Ratio 3.81; Triglycerides 424 MG/DL (2-150); Troponin I < 0.015 NG/ML (0.00-0.045); VLDL CHOLESTEROL 84.8 MG/DL
[2019-09-11] MEDS: POTASSIUM CHLORIDE 20 MEQ TABLET PO PRN ×2 (06:28→09:17)
[2019-09-11] MEDS: SODIUM CHLORIDE 0.45% 1,000 ML IV SCH (06:29)
[2019-09-11 08:54] VITALS: BP 157/79
[2019-09-11] MEDS ORDERED: ENOXAPARIN 40 MG/0.4 ML SYRINGE SUBCUT SCH ×2 (09:00→16:30)
[2019-09-11] MEDS ORDERED: POTASSIUM CHLORIDE 8 MEQ CAPSULE PO SCH (09:00)
[2019-09-11] MEDS ORDERED: PANTOPRAZOLE 40 MG TABLET PO SCH (09:00)
[2019-09-11] MEDS ORDERED: ASCORBIC ACID 500 MG TABLET PO SCH (09:00)
[2019-09-11] MEDS ORDERED: ASPIRIN EC 325 MG TABLET PO SCH (09:00)
[2019-09-11] MEDS: INSULIN REGULAR 100 UNIT/ML SUBCUT SCH ×2 (09:45→11:25)
[2019-09-11] MEDS: AZELASTINE NASAL 137 MCG/SPRAY 30 ML BOTTLE BOTH NARES SCH (10:23)
[2019-09-11] MEDS: CALCIUM (CITRATE)/VITAMIN D 200 MG-125 UNIT TABLET PO SCH (10:24)
[2019-09-11] MEDS: BUMETANIDE 1 MG TABLET PO SCH (10:24)
[2019-09-11] MEDS: FLUTICASONE 50 MCG NASAL SPRAY 16 GM BOTTLE BOTH NARES SCH (10:24)
[2019-09-11] MEDS: ACETAMINOPHEN 325 MG TABLET PO SCH (10:25)
[2019-09-11] MEDS: GABAPENTIN 100 MG CAPSULE PO SCH (10:26)
[2019-09-11] MEDS: FAMOTIDINE 20 MG TABLET PO SCH (10:26)
== END 2019-09-11 12:22 | disposition home or self-care (01) ==
LOC: EDUNIT# → EDBD → N.ED 13:42 → N.EDINP 13:42 → N.TELES 17:35
PROVIDERS: ADMIT Internal Medicine Cardiovascular Disease; ATTEND Internal Medicine Cardiovascular Disease